=== PATIENT | male | born 1980 | race African-American/Black ===

== ENCOUNTER 2019-04-09 18:16 | Emergency (ER) | payer SELFPAY ==
[2019-04-09 18:26] VITALS: BP 125/80; PULSE 110; TEMP 98; BMI 28.8
--- NOTE | 2019-04-09 18:48 | PDOC ---
History of Present Illness - General Chief Complaint: Pain Stated Complaint: FALL/NUMBNESS/R.KNEE/HANDS/ARMS Time Seen by Provider: 04/09/19 18:34 History Source: Patient - History of Present Illness Associated Symptoms (Fall): denies symptoms, chest pain, dizziness, lightheadedness, nausea/vomiting Past History - Past Medical History Allergies/Adverse Reactions: Allergies Allergy/AdvReac Type Severity Reaction Status Date / Time No Known Allergies Allergy Verified 04/09/19 18:26 Home Medications: Ambulatory Orders Crutch 1 each MC ACDIN 3 Days #1 each 04/09/19 Crutch 1 each MC ACDIN 3 Days #1 each 04/09/19 Ibuprofen 800 mg PO ACDIN 7 Days #30 tablet 04/09/19 COPD: No HTN: Yes - Suicide/Smoking/Psychosocial Hx Smoking History: Never smoked *Physical Exam - Vital Signs Last Vital Signs Temp Pulse Resp BP Pulse Ox 98 F 110 H 18 125/80 99 04/09/19 18:24 04/09/19 18:24 04/09/19 18:24 04/09/19 18:24 04/09/19 18:24 ED Treatment Course - RADIOLOGY Radiology Studies Ordered: Category Date Time Status KNEE 3 POS-RIGHT [RAD] Stat Radiology 04/09/19 18:38 Ordered Medical Decision Making - Medical Decision Making 04/09/19 18:47 38y/o M with h/o HTN p/w R knee and thigh pain after a fall while playing basketball today denies LOC or head trauma *DC/Admit/Observation/Transfer Diagnosis at time of Disposition: Knee pain, right Qualifiers: Chronicity: acute Qualified Code(s): M25.561 - Pain in right knee - Discharge Dispostion Disposition: HOME Condition at time of disposition: Stable Decision to Admit order: No - Prescriptions Prescriptions: Crutch 1 each MC ACDIN 3 Days #1 each Crutch 1 each MC ACDIN 3 Days #1 each Ibuprofen 800 mg PO ACDIN 7 Days #30 tablet - Referrals Referrals: Emiliano Beltran DO [Staff Physician] - - Patient Instructions Additional Instructions: Your preliminary xray was negative for acute fracture or dislocation if the official report reads otherwise you will be contacted please follow up with orthopedic for further evaluation use knee immobilizer as directed take medication as prescribed return to the ER If worsening symptoms occurs - Post Discharge Activity
[2019-04-09] MEDS ORDERED: KETOROLAC TROMETHAMINE 60 MG/2 ML VIAL IM ONE (18:50)
[2019-04-09] MEDS ORDERED: KETOROLAC TROMETHAMINE 60 MG/2 ML VIAL ONE (18:53)
== END 2019-04-09 20:00 | disposition home or self-care (01) ==
LOC: JERFT 18:16
PROC: 3E0233Z Introduction of Anti-inflammatory into Muscle, Percutaneous Approach (ICD-10-PCS; principal; 2019-04-09)
DX: M25.561 Pain in right knee (principal); I10 Essential (primary) hypertension; W18.39XA Other fall on same level, initial encounter; Y93.67 Activity, basketball; Y92.310 Basketball court as the place of occurrence of the external cause
CPT/HCPCS: 73552-TC-RT-FY; 73562-TC-RT-FY; 96372; 99281-25